=== PATIENT | male | born 1990 | race Two or more races ===

== ENCOUNTER 2020-04-28 17:58 | Emergency (ER) | payer BC ==
[~2020-04-28] VITALS: Ht 180.3 cm; Wt 79.4 kg
--- NOTE | 2020-04-28 18:03 | NUR ---
BIB FRIEND C/O ANXIETY ATTACK/ CHEST PAIN BURNING LIKE, TO ER BED 10, HOOKED TO MONITOR. CHANGED TO HOSP GOWN. WARM BLANKET PROVIDED. AWAITING MD DUNBAR
--- NOTE | 2020-04-28 18:10 | NUR ---
DR MOCTEZUMA AT BEDSIDE
[2020-04-28] MEDS ORDERED: LORAZEPAM INJ 2 MG/ML VIAL ONE (18:26)
[2020-04-28] MEDS ORDERED: LORAZEPAM INJ 2 MG/ML VIAL IM ONE (18:30)
--- NOTE | 2020-04-28 19:27 | NUR ---
KEANU CONTACT INFORMATION: [phone]
--- NOTE | 2020-04-28 19:33 | NUR ---
REPORT GIVEN TO LINA LYNCH FOR MARCO
[2020-04-28 19:35] LABS: CALCIUM, SERUM 8.7 mg/dL (8.5-10.1); CARBON DIOXIDE 30 mmol/L (21-32); CHLORIDE 105 mmol/L (98-107); CREATININE 1.2 mg/dL (0.6-1.3); GLUCOSE 96 mg/dL (74-106); POTASSIUM 3.4 mmol/L (3.5-5.1); SODIUM SERUM 141 mmol/L (136-145); UREA NITROGEN, BLOOD 19 mg/dL (7-18)
[2020-04-28 20:01] LABS: BASOPHILS % (AUTO) 0.8 % (0.0-2.0); HEMATOCRIT 45 % (39-51); HEMOGLOBIN 15.6 g/dL (13.5-17.5); LYMPHOCYTES # (AUTO) 2.3 /CMM (0.8-4.8); LYMPHOCYTES % (AUTO) 49.7 % (20.0-44.0); MEAN CORPUSCULAR HGB CONC 35 g/dl (31.0-36.0); MEAN CORPUSCULAR VOLUME 95 fL (80-96); MONOCYTES # (AUTO) 0.5 /CMM (0.1-1.30); MONOCYTES % (AUTO) 10.1 % (2.0-12.0); NEUTROPHILS # (AUTO) 1.7 /CMM (1.8-8.9); NEUTROPHILS % (AUTO) 36.4 % (43.0-81.0); PLATELET COUNT (AUTO) 171 /CMM (150-450); WHITE BLOOD COUNT (AUTO) 4.7 K/uL (4.3-11.0)
[2020-04-28] MEDS ORDERED: LORA-259 PO (20:04)
--- NOTE | 2020-04-28 20:30 | NUR ---
Patient discharged to home in stable condition. Written and verbal after care instructions given. Patient verbalizes understanding of instruction.
[2020-04-28 20:31] VITALS: BP 136/97
== END 2020-04-28 20:32 | disposition home or self-care (01) ==
LOC: ER 18:02
DX: F41.1 Generalized anxiety disorder (principal); Z79.899 Other long term (current) drug therapy
CPT/HCPCS: 36415; 71045; 80048; 84484; 85025; 93005; 96372; 99285; J2060; J7030

== ENCOUNTER 2023-06-14 08:58 | Emergency (ER) | payer BC, OTHER ==
[~2023-06-14] VITALS: Ht 180.3 cm; Wt 78.9 kg
[~2023-06-14 08:58] MED LIST: LORA-259 PO
[2023-06-14 09:37] LABS: BASOPHILS % (AUTO) 0.4 % (0.0-2.0); EOSINOPHILS # (AUTO) 0.1 K/uL (0.0-0.7); EOSINOPHILS % (AUTO) 2.1 % (0.0-6.0); HEMATOCRIT 47 % (39-51); HEMOGLOBIN 15.8 g/dL (13.5-17.5); LYMPHOCYTES # (AUTO) 3.1 K/uL (0.8-4.8); LYMPHOCYTES % (AUTO) 61.9 % (20.0-44.0); MEAN CORPUSCULAR HEMOGLOBIN 32 PG (26.0-33.0); MEAN CORPUSCULAR HGB CONC 34 g/dl (31.0-36.0); MEAN CORPUSCULAR VOLUME 94 fL (80-96); MONOCYTES # (AUTO) 0.4 K/uL (0.1-1.30); MONOCYTES % (AUTO) 7.5 % (2.0-12.0); NEUTROPHILS # (AUTO) 1.4 K/uL (1.8-8.9); NEUTROPHILS % (AUTO) 28.1 % (43.0-81.0); PLATELET COUNT (AUTO) 181 K/uL (150-450); RED BLOOD CELL COUNT(AUTO) 4.98 MIL/uL (4.5-6.0); RED CELL DISTRIBUTION WIDTH 12.9 % (11.5-15.0)
[2023-06-14 09:54] LABS: CALCIUM, SERUM 8.8 mg/dL (8.5-10.1); CARBON DIOXIDE 34 mmol/L (21-32); CHLORIDE 104 mmol/L (98-107); CREATININE 1.4 mg/dL (0.6-1.3); GLUCOSE 99 mg/dL (74-106); POTASSIUM 4.4 mmol/L (3.5-5.1); SODIUM SERUM 141 mmol/L (136-145); UREA NITROGEN, BLOOD 13 mg/dL (7-18)
[2023-06-14 10:54] VITALS: BP 130/85; TEMP 98; O2SAT 100
[2023-06-14 11:47] LABS: EOSINOPHILS % (MANUAL) 4 % (0-4); LYMPHOCYTES % (MANUAL) 65 % (16-48); MONOCYTES % (MANUAL) 7 % (0-11.0); NEUTROPHILS % (MANUAL) 24 (42-76); PLATELET ESTIMATE ADEQUATE
== END 2023-06-14 10:55 | disposition home or self-care (01) ==
LOC: ER 08:58
DX: R07.89 Other chest pain (principal)
CPT/HCPCS: 36415; 71045-TC; 80048-TC; 84484-TC; 85025-TC